=== PATIENT | male | born 1990 | race Caucasian/White ===

== ENCOUNTER → 2025-05-21 14:52 | Outpatient (CLI) | payer OTHER, SELFPAY | PROVIDERS: Referring Provider Physician Assistant; Visit Provider Physician Assistant | DX: R10.30 Lower abdominal pain, unspecified (principal) | CPT/HCPCS: 36415; 86140 ==

== ENCOUNTER → 2025-05-25 11:43 | Outpatient (CLI) | payer OTHER, SELFPAY ==
[2025-05-28 16:09] LABS: H. Pylori Antigen Stool Negative (Negative)
[2025-05-29 15:36] LABS: Calprotectin, Stool 9 ug/g (0-120)
== END ==
PROVIDERS: Referring Provider Physician Assistant; Visit Provider Physician Assistant
DX: R10.30 Lower abdominal pain, unspecified (principal)
CPT/HCPCS: 83993; 87338